=== PATIENT | female | born 1990 | race Caucasian/White ===

== ENCOUNTER → 2019-03-10 | Outpatient (CLI) | payer BC ==
[~2019-03-10] MED LIST: IOHEXOL 240 MGI/ML 20 ML (OMNIPAQUE) VIAL IV ONE
--- NOTE | 2019-03-10 15:29 | Diagnostic Imaging Report ---
INDICATION: Hysterosalpingogram. INDICATION: Tubal occlusion. TECHNIQUE: Fluoroscopic assistance was provided for Dr. Tootie Rogers during her hysterosalpingogram procedure. Following aseptic preparation of the skin, a small catheter was advanced into the cervical os and contrast was infused. There does appear to be spill from both fallopian tubes. The endometrial cavity of the uterus is generally unremarkable. The patient tolerated the procedure well and was dismissed in good condition. 35 seconds of fluoroscopy time was utilized. IMPRESSION: 1. The fallopian tubes are patent. 2. These results were discussed with Dr. ROGERS. Dictated by: Dictated on workstation # [id number]
== END ==
LOC: RAD 12:06
PROVIDERS: ATTEND Obstetrics & Gynecology
DX: N97.1 Female infertility of tubal origin (principal)
CPT/HCPCS: 58340; 74740

== ENCOUNTER → 2019-04-15 | Outpatient (CLI) | payer BC | LOC: LAB FS 12:08 | PROVIDERS: ATTEND Obstetrics & Gynecology | DX: E28.2 Polycystic ovarian syndrome (principal) | CPT/HCPCS: 36415; 84144 ==

== ENCOUNTER 2021-08-12 02:53 | Emergency (ER) | payer BC ==
--- NOTE | 2021-08-12 03:18 | ED Upper Extremity ---
General Chief Complaint: Upper Extremity Stated Complaint: FALL; LT ARM Nursing Triage Note: Pt states she fell around 2114 on her left elbow while roller skating. Pt complaining of left elbow and forearm pain History of Present Illness Date Seen by Provider: Aug 12, 2021 Time Seen by Provider: 03:04 Initial Comments 31-year-old female is here with complaints of left elbow pain after she had a fall while rollerskating last night at around 9 PM. Patient is holding her elbow flexed and close to her body. Pain is aggravated by movement. Denies head strike, LOC, nausea or vomiting. Allergies and Home Medications Allergies Coded Allergies: Sulfa (Sulfonamide Antibiotics) (Verified Allergy, Unknown, 08/12/21) Patient Home Medication List Home Medication List Reviewed: Yes Review of Systems Constitutional: no symptoms reported EENTM: no symptoms reported Respiratory: no symptoms reported Cardiovascular: no symptoms reported Gastrointestinal: no symptoms reported Genitourinary: no symptoms reported Musculoskeletal: joint pain, joint swelling Skin: no symptoms reported Psychiatric/Neurological: No Symptoms Reported Past Urlxbtf-Oqxhqo-Pmmvxr Hx Patient Social History Tobacco Use?: No Use of E-Cig and/or Vaping dev: No Substance use?: No Alcohol Use?: No Physical Exam Vital Signs Vital Signs - First Documented 08/12/21 02:58 Temp 36.5 Pulse 95 Resp 18 B/P (MAP) 123/86 (98) Pulse Ox 98 O2 Delivery Room Air Capillary Refill : Less Than 3 Seconds Height, Weight, BMI Height: '" Weight: lbs. oz. kg; BMI Method: General Appearance: WD/WN, no apparent distress HEENT: PERRL/EOMI Neck: full range of motion, supple, normal inspection Back: normal inspection, no vertebral tenderness Shoulder: limited ROM, pain, swelling Elbow/Forearm: Left (NV bundle intact, closed injury), bone tenderness, limited ROM, pain, soft tissue tenderness, swelling Wrist: Yes normal inspection, Yes non-tender, Yes no evidence of injury, Yes normal ROM, Yes limited ROM Hand: normal inspection, non-tender, no evidence of injury, normal ROM, Left Neurologic/Tendon: normal sensation, normal motor functions, normal tendon functions Neurologic/Psychiatric: alert, normal mood/affect, oriented x 3 Skin: normal color Progress/Results/Core Measures Results/Orders My Orders Orders - FANNY BLANCO MD Forearm 2 View Left (08/12/21 02:59) Oxycodone/Apap 5/325mg Tablet (Percocet (08/12/21 03:22) Rx-Oxycodone/Apap 5-325 Mg (Rx-Percocet (08/12/21 03:30) Vital Signs/I&O 08/12/21 02:58 Temp 36.5 Pulse 95 Resp 18 B/P (MAP) 123/86 (98) Pulse Ox 98 O2 Delivery Room Air Blood Pressure Mean: 98 Progress Progress Note : Progress Note 1. LEFT RADIAL HEAD FRACTURE: - X-R ELBOW: chip fracture of radial head ( left) - Posterior long arm splint and sling - Percocet STAT in ER - F/u with Ortho in 3 to 7 days Departure Impression Primary Impression: Left radial head fracture Qualified Codes: S52.125A - Nondisplaced fracture of head of left radius, initial encounter for closed fracture Disposition: HOME, SELF-CARE Condition: Stable Departure-Patient Inst. Referrals: CHIDI MARTINEZ MD (PCP/Family) Primary Care Physician Patient Instructions: Elbow Fracture, Adult ED, How to Use a Shoulder Sling, Elbow Fracture (DC) Add. Discharge Instructions: - Take home percocet package for severe pain only. Take Ibuprofen for mild to moderate pain - F/u with Ortho clinic in 3 to 7 days: Call to make appointment: Dr. Monge: [phone] All discharge instructions reviewed with patient and/or family. Voiced understanding. FANNY BLANCO MD Aug 12, 2021 03:18
[2021-08-12] MEDS ORDERED: oxyCODONE/APAP 5/325MG (PERCOCET 5) TABLET PO STA (03:22)
[2021-08-12] MEDS ORDERED: RX-OXYCODONE/APAP 5-325 MG #4 TAB PK PO PRN (03:30)
[2021-08-12 03:35] VITALS: BP 123/86
--- NOTE | 2021-08-12 07:02 | Diagnostic Imaging Report ---
INDICATION: Fall with left forearm injury. TIME OF EXAM: 3:05 AM Two views of the left forearm were obtained. There appears to be a fracture of the head of the radius. Fracture lines are seen extending intra-articular. Ulna appears to be intact. Alignment at the elbow and wrist is normal. Soft tissues are unremarkable. IMPRESSION: Proximal radius fracture, nondisplaced. Dictated by: Dictated on workstation # [id number]
== END 2021-08-12 03:36 | disposition home or self-care (01) ==
LOC: EDUNIT# 02:53 → ER FS 02:55
DX: S52.122A Displaced fracture of head of left radius, initial encounter for closed fracture (principal); V00.111A Fall from in-line roller-skates, initial encounter; Y93.51 Activity, roller skating (inline) and skateboarding
CPT/HCPCS: 29105